=== PATIENT | female | born 1980 | race Caucasian/White ===

== ENCOUNTER 2016-11-13 10:29 | Emergency (ER) | payer BC ==
[2016-11-13 11:37] VITALS: BP 128/76
[2016-11-13 11:48] LABS: Hematocrit 41 % (35-47); Hemoglobin 13.5 g/dl (12.0-16.0); Mean Corpuscular HGB Conc 33 g/dl (31-36); Mean Corpuscular Hemoglobin 30 pg (27-31); Mean Corpuscular Volume 92 fL (80-97); Mean Platelet Volume 9 um3 (7.4-10.4); Red Blood Count 4.45 10^6/ul (4.0-5.4); Red Cell Distribution Width 13 % (10.5-15); White Blood Count 9.3 10^3/ul (3.5-10.8)
[2016-11-13 12:14] LABS: ALT 32 U/L (7-52); AST 23 U/L (13-39); Albumin 4.4 g/dL (3.2-5.2); Alkaline Phosphatase 65 U/L (34-104); Anion Gap 5 mmol/L (2-11); BUN/Creatinine Ratio 16.7 (8-20); Blood Urea Nitrogen 17 mg/dL (6-24); CO2 Carbon Dioxide 25 mmol/L (22-32); Calcium 9.7 mg/dL (8.6-10.3); Chloride 106 mmol/L (101-111); EGFR African American 78.9 (>60); EGFR Non-African American 61.3 (>60); Globulin 2.9 g/dL (2-4); Glucose 99 mg/dL (70-100); Potassium 4.5 mmol/L (3.5-5.0); Sodium 136 mmol/L (133-145); Total Protein 7.3 g/dL (6.4-8.9)
--- NOTE | 2016-11-13 12:22 | RAD ---
Indication: Abdominal pain, history of ectopic . Real-time sonography of the was performed. The uterus measures 7.4 x 3.8 x 4.4 cm. Endometrial echo measures 13 mm. Trace amount of free fluid in the cul-de-sac. The right ovary measures 3.5 x 2.0 x 3.1 cm. Left ovary measures 3.1 x 1.6 x 2.9 cm. No adnexal masses are noted. Doppler interrogation demonstrates flow in both ovaries. IMPRESSION: Trace amount of free fluid in the cul-de-sac with no definite adnexal masses.
[2016-11-13 13:19] LABS: Urine Bilirubin Negative (Negative); Urine Glucose Negative (Negative); Urine Nitrite Negative (Negative)
--- NOTE | 2016-11-13 19:10 | ED ---
Saige Nagy Seung-Jae, scribed for Sabino Tse MD on 11/13/16 at 1616 . GI/ HPI - HPI Summary HPI Summary: Pt is a 36 y/o F presenting to the ED with c/o discomfort in the suprapubic area. She describes tenderness in the suprapubic area. Associated Sx included vomiting and abd tenderness. She wants to r/o ectopic due to the inaccuracy of urine pregancy tests for this pt. PMhx surgery in left fallopian tube and the right tube is intact. - History of Current Complaint Chief Complaint: EDAbdPain Time Seen by Provider: 11/13/16 12:05 Stated Complaint: POSS TUBAL PREG Hx Obtained From: Patient Onset/Duration: Started Hours Ago Timing: Constant Pain Intensity: 0 Location of Pain: Suprapubic Pain Characteristics: Other: - tenderness Associated Signs and Symptoms: Positive: Nausea, Vomiting, Abdominal Pain - Additional Pertinent History Primary Care Physician: GIANNI - Allergy/Home Medications Allergies/Adverse Reactions: Allergies Allergy/AdvReac Type Severity Reaction Status Date / Time No Known Allergies Allergy Verified 06/15/13 19:19 PMH/Surg Hx/FS Hx/Imm Hx Endocrine/Hematology History: Denies: Hx Diabetes, Hx Thyroid Disease Cardiovascular History: Denies: Hx Hypertension Respiratory History: Denies: Hx Asthma, Hx Chronic Obstructive Pulmonary Disease (COPD) GI History: Denies: Hx Ulcer History: Reports: Hx Kidney Stones Denies: Hx Dialysis, Hx Renal Disease Psychiatric History: Reports: Hx Anxiety, Other Psychiatric Issues/Disorders - Claustrophobia - Surgical History Surgery Procedure, Year, and Place: stents for kidney stones Infectious Disease History: No Infectious Disease History: Denies: Hx Hepatitis, Hx Human Immunodeficiency Virus (HIV), Traveled Outside the [place] in Last 30 Days - Family History Known Family History: Positive: Hypertension Negative: Other - negative for ectopic - Social History Alcohol Use: None Substance Use Type: Reports: None Smoking Status (MU): Never Smoked Tobacco Review of Systems Positive: Abdominal Pain, Vomiting, Nausea Positive: other - suprapubic tenderness All Other Systems Reviewed And Are Negative: Yes Physical Exam - Summary Physical Exam Summary: The patient is well-nourished in no acute distress and in no acute pain. The skin is warm and dry and skin color reflects adequate perfusion. HEENT: The head is normocephalic and atraumatic. The pupils are equal and reactive. The conjunctivae are clear and without drainage. Nares are patent and without drainage. Mouth reveals moist mucous membranes and the throat is without erythema and exudate. The external ears are intact. The ear canals are patent and without drainage. The tympanic membranes are intact. Neck is supple with full range of motion and non-tender. There are no carotid bruits. There is no neck vein distension. Respiratory: Chest is non-tender. Lungs are clear to auscultation and breath sounds are symmetrical and equal. Cardiovascular: Hear is regular rate and rhythm. There is no murmur or rub auscultated. There is no peripheral edema and pulses are symmetrical and equal. Abdomen: There are normal bowel sounds heard in all four quadrants and there is no organomegaly palpated. suprapubic area tenderness. Musculoskeletal: There is no back pain noted. Extremities are non-tender with full range of motion. There is good capillary refill. There is no peripheral edema or calf tenderness elicited. Neurological: Patient is alert and oriented to person, place and time. The patient has symmetrical motor strength in all four extremities. Cranial nerves are grossly intact. Deep tendon reflexes are symmetrical and equal in all four extremities. Psychiatric: The patient has an appropriate affect and does not exhibit any anxiety or depression. Triage Information Reviewed: Yes Vital Signs On Initial Exam: Initial Vitals Temp Pulse Resp BP Pulse Ox 98.6 F 61 16 136/78 100 11/13/16 10:58 11/13/16 10:58 11/13/16 10:58 11/13/16 10:58 11/13/16 10:58 Vital Signs Reviewed: Yes - [place] Sta Coma Scale Coma Scale Total: 15 Diagnostics - Vital Signs Vital Signs Temp Pulse Resp BP Pulse Ox 11/13/16 11:32 74 128/76 98 11/13/16 11:30 68 99 11/13/16 11:13 61 99 11/13/16 11:10 122/77 11/13/16 11:09 97.6 F 76 18 122/77 98 11/13/16 10:58 98.6 F 61 16 136/78 100 - Laboratory Lab Results: Lab Results 11/13/16 11/13/16 11/13/16 Range/Units 11:33 11:33 11:33 WBC 9.3 (3.5-10.8) 10^3/ul RBC 4.45 (4.0-5.4) 10^6/ul Hgb 13.5 (12.0-16.0) g/dl Hct 41 (35-47) % MCV 92 (80-97) fL MCH 30 (27-31) pg MCHC 33 (31-36) g/dl RDW 13 (10.5-15) % Plt Count 244 (150-450) 10^3/ul MPV 9 (7.4-10.4) um3 Neut % (Auto) 66.8 (38-83) % Lymph % (Auto) 23.5 L (25-47) % [place] % (Auto) 8.2 (1-9) % Eos % (Auto) 0.9 (0-6) % Baso % (Auto) 0.6 (0-2) % Absolute Neuts (auto) 6.2 (1.5-7.7) 10^3/ul Absolute Lymphs (auto) 2.2 (1.0-4.8) 10^3/ul Absolute Monos (auto) 0.8 (0-0.8) 10^3/ul Absolute Eos (auto) 0.1 (0-0.6) 10^3/ul Absolute Basos (auto) 0.1 (0-0.2) 10^3/ul Absolute Nucleated RBC 0 10^3/ul Nucleated RBC % 0 Sodium 136 (133-145) mmol/L Potassium 4.5 (3.5-5.0) mmol/L Chloride 106 (101-111) mmol/L Carbon Dioxide 25 (22-32) mmol/L Anion Gap 5 (2-11) mmol/L BUN 17 (6-24) mg/dL Creatinine 1.02 H (0.51-0.95) mg/dL Est GFR ( Amer) 78.9 (>60) Est GFR (Non-Af Amer) 61.3 (>60) BUN/Creatinine Ratio 16.7 (8-20) Glucose 99 (70-100) mg/dL Calcium 9.7 (8.6-10.3) mg/dL Total Bilirubin 0.50 (0.2-1.0) mg/dL AST 23 (13-39) U/L ALT 32 (7-52) U/L Alkaline Phosphatase 65 (34-104) U/L Total Protein 7.3 (6.4-8.9) g/dL Albumin 4.4 (3.2-5.2) g/dL Globulin 2.9 (2-4) g/dL Albumin/Globulin Ratio 1.5 (1-3) Blood Type B Positive Antibody Screen Pending Result Diagrams: 11/13/16 11:33 11/13/16 11:33 Lab Statement: Any lab studies that have been ordered have been reviewed, and results considered in the medical decision making process. - Additional Comments Diagnostic Additional Comments: Transvaginal US Impression: Trace amount of free fluid in the cul de sac with no definite adnexal masses. GIGU Course/Dx - Course Assessment/Plan: Pt is a 36 y/o F presenting to the ED with c/o discomfort in the suprapubic area. She describes tenderness in the suprapubic area. Associated Sx included vomiting and abd tenderness. She wants to r/o ectopic due to the inaccuracy of urine pregancy tests for this pt. PMhx surgery in left fallopian tube and the right tube is intact. Through transvaginal US trace amounts of free fluid was found in the cul de sac with no definite adnexal masses. Pt was D/C with a f/u with Dr. Alvarado. - Diagnoses Differential Diagnoses - Female: GI Foreign Body, Urinary Tract Infection, Other - , ectopic preganancy, abdominal pain Provider Diagnoses: Abdominal pain, Nausea, Negative test Discharge - Discharge Plan Condition: Stable Disposition: HOME Patient Education Materials: Abdominal Pain (ED), Acute Nausea and Vomiting (ED ) Referrals: Maria Esther Fowler MD [Primary Care Provider] - 2 Days The documentation as recorded by the Saige rodriguez Seung-Jae accurately reflects the service I personally performed and the decisions made by , Sabino Tse MD.
== END 2016-11-13 14:02 | disposition home or self-care (01) ==
LOC: ED 10:29
DX: R10.9 Unspecified abdominal pain (principal); R11.2 Nausea with vomiting, unspecified
CPT/HCPCS: 36415; 76817; 80053; 81003; 84702; 85025; 86850; 86870; 86880; 86900; 86901; 99282

== ENCOUNTER → 2017-06-11 07:41 | Emergency (ER) | payer BC ==
[~2017-06-11 07:41] MED LIST: Iohexol 300* (CONTRAST) 10 ML SDV IV ONE; Ketorolac INJ* 30 MG/ML 1 ML VIAL ONE; Morphine INJ* 4 MG/ML 1 ML CARPUJECT IV ONE; NS 0.9% 1000 ML* 1,000 ML IV ONE; Ondansetron INJ* 2 MG/ML VIAL IV ONE
[2017-06-11 08:08] LABS: ABS Basophils 0.1 10^3/ul (0-0.2); ABS Eosinophils 0.1 10^3/ul (0-0.6); ABS Lymphocytes 1.6 10^3/ul (1.0-4.8); ABS Monocytes 0.5 10^3/ul (0-0.8); ABS Neutrophils 7.2 10^3/ul (1.5-7.7); ABS Nucleated RBC 0 10^3/ul; Eosinophil % 0.6 % (0-6); Hematocrit 40 % (35-47); Hemoglobin 13.8 g/dl (12.0-16.0); Lymphocyte % 16.9 % (25-47); Mean Corpuscular HGB Conc 35 g/dl (31-36); Mean Corpuscular Hemoglobin 31 pg (27-31); Mean Corpuscular Volume 89 fL (80-97); Mean Platelet Volume 9 um3 (7.4-10.4); Nucleated Red Blood Cells % 0; Platelet Count 248 10^3/ul (150-450); Red Blood Count 4.48 10^6/ul (4.0-5.4); Red Cell Distribution Width 13 % (10.5-15); White Blood Count 9.5 10^3/ul (3.5-10.8)
[2017-06-11 08:32] LABS: EGFR Non-African American 76.7 (>60)
--- NOTE | 2017-06-11 11:03 | RAD ---
Indication: Abdominal pain. Contrast: Administered 116.3 ml of OMNIPAQUE 300 mg/ml CT of the abdomen and pelvis was performed after oral and IV contrast administration. Coronal and sagittal reconstructed images were obtained. Comparison is made with previous exam dated March 31, 2016. The lung bases demonstrate no pleural fluid, nodules or masses. Heart is of normal size without evidence of pericardial effusion. Liver is normal in size. No focal lesions or intrahepatic ductal dilatation is noted. The gallbladder demonstrates no calcified gallstones. No pericholecystic fluid or wall thickening is identified. The pancreas demonstrates no mass effect or ductal dilatation. The spleen is normal in size. No adrenal lesions are noted. The kidneys demonstrates no hydronephrosis. Calculi are noted in both renal collecting system without definite evidence of obstruction. No retroperitoneal adenopathy is noted. No dilated loops of bowel are noted. The colon is filled with stool. No dilated loops of bowel are noted. The bladder is otherwise unremarkable Urinary bladder is unremarkable. Uterus and ovaries are clear The appendix appears to be unremarkable. IMPRESSION: No abnormal masses or fluid collections are noted. Bilateral renal calculi without definite evidence of obstruction. No abnormal masses or fluid collections are noted.
[2017-06-11 11:23] LABS: Urine Appearance Cloudy; Urine Blood 3+ (Negative); Urine Color Yellow; Urine Ketones Negative (Negative); Urine Protein Negative (Negative); Urine Specific Gravity 1.011 (1.010-1.030); Urine Urobilinogen Negative (Negative)
--- NOTE | 2017-06-11 12:45 | RAD ---
HISTORY: Right pelvic pain COMPARISONS: CT dated June 11, 2014 TECHNIQUE: Multiple transverse and longitudinal ultrasound images were obtained of the pelvis using grayscale, color Doppler, and spectral Doppler imaging using the endovaginal transducer. FINDINGS: UTERUS: The uterus measures 3.9 x 3.7 x 4.1 cm. The uterus is normal in shape, size, contour, and echotexture. ENDOMETRIUM: The endometrial stripe is smooth. The endometrium measures 1.3 cm in thickness. There is small amount of free fluid within the endocervical canal. CUL-DE-SAC: There is small amount of free fluid along the left adnexa. RIGHT OVARY: The right ovary measures 3.5 x 1.8 x 1.6 cm. Normal arterial and venous waveforms are identifiable within the ovary on spectral Doppler imaging. LEFT OVARY: The left ovary measures 2.4 x 1.1 x 2 cm. The spectral tracings are technically limited, but venous waveforms can be identified within the left ovary. BLADDER: The bladder is not well visualized. OTHER: None IMPRESSION: 1. THE ENDOMETRIUM MEASURES 1.3 CM. 2. THERE IS A SMALL AMOUNT OF FLUID WITHIN THE ENDOCERVICAL CANAL. 3. NO SONOGRAPHIC FEATURES OF TORSION. PLEASE NOTE THAT PARTIAL OR INTERMITTENT TORSION MAY BE SONOGRAPHICALLY NORMAL.
[2017-06-11 13:11] VITALS: BP 120/74
--- NOTE | 2017-06-11 18:55 | ED ---
Andrea Nagy Angela, scribed for Emanuel Mullins MD on 06/11/17 at 0755 . Abdominal Pain/Female - HPI Summary HPI Summary: This pt is a 36 y/o female presenting to [facility] c/o right sided abdominal pain radiating to her back x2 days. Pt reports her pain was intense last night and had difficulty sleeping secondary to pain. She describes her pain as throbbing. Pt notes her pain began in her back first. She rates her pain 7 out of 10 in severity. She states this pain "sort of" feels like her past kidney stones. PMHx: kidney stones, ectopic (s/p removal of left fallopian tube). LMP: 1.5 weeks ago. She denies chance of . - History of Current Complaint Chief Complaint: EDAbdPain Stated Complaint: RIGHT SIDE ABD PAIN Hx Obtained From: Patient Hx Last Menstrual Period: 1.5 weeks ago Onset/Duration: Lasting Days, Still Present Timing: Days Severity Currently: Severe Pain Intensity: 7 Pain Scale Used: 0-10 Numeric Location: Discrete At: RLQ Radiates: Yes Radiates to: Back Character: Other: - throbbing Aggravating Factor(s): Nothing Alleviating Factor(s): Nothing Associated Signs and Symptoms: Positive: Nausea, Vomiting, Diarrhea. Negative: Fever Allergies/Adverse Reactions: Allergies Allergy/AdvReac Type Severity Reaction Status Date / Time No Known Allergies Allergy Verified 06/11/17 08:22 PMH/Surg Hx/FS Hx/Imm Hx Endocrine/Hematology History: Denies: Hx Diabetes, Hx Thyroid Disease Cardiovascular History: Denies: Hx Hypertension Respiratory History: Denies: Hx Asthma, Hx Chronic Obstructive Pulmonary Disease (COPD) GI History: Denies: Hx Ulcer History: Reports: Hx Kidney Stones Denies: Hx Dialysis, Hx Renal Disease Psychiatric History: Reports: Hx Anxiety, Other Psychiatric Issues/Disorders - Claustrophobia - Surgical History Surgery Procedure, Year, and Place: stents for kidney stones. Left fallopian tube removed Infectious Disease History: No Infectious Disease History: Denies: Hx Hepatitis, Hx Human Immunodeficiency Virus (HIV), Traveled Outside the [place] in Last 30 Days - Family History Known Family History: Positive: Hypertension, Diabetes Negative: Other - negative for ectopic Family History: high cholesterol - Social History Alcohol Use: None Substance Use Type: Reports: None Smoking Status (MU): Never Smoked Tobacco Review of Systems Negative: Fever, Chills Eyes: Negative ENT: Negative Cardiovascular: Negative Positive: Abdominal Pain, Vomiting, Diarrhea, Nausea All Other Systems Reviewed And Are Negative: Yes Physical Exam - Summary Physical Exam Summary: VITAL SIGNS: Reviewed. GENERAL: Patient is a well-developed and nourished female who is lying comfortable in the stretcher. Patient is not in any acute respiratory distress. HEAD AND FACE: Normocephalic and atraumatic. EYES: PERRLA, EOMI x 2, No injected conjunctiva. EARS: Hearing grossly intact. Ear canals and tympanic membranes are WNL. MOUTH: Oropharynx within normal limits. NECK: Supple, trachea is midline, no adenopathy, no JVD. CHEST: Symmetric, no tenderness at palpation LUNGS: Clear to auscultation bilaterally. No wheezing or crackles. CVS: RRR, S1 and S2 present, no murmurs or gallops appreciated. ABDOMEN: Soft. Right lower quadrant abdominal tenderness. No signs of distention. Positive bowel sounds. No rebound no guarding, and no masses palpated. No abdominal bruit or pulsations. Right costovertebral tenderness. EXTREMITIES: FROM in all major joints, no edema, no cyanosis or clubbing. NEURO: Alert and oriented x 3. No acute neurological deficits. Speech is normal. SKIN: Dry and warm Triage Information Reviewed: Yes Vital Signs On Initial Exam: Initial Vitals Temp Pulse Resp BP Pulse Ox 98.2 F 85 16 131/88 95 06/11/17 07:42 06/11/17 07:42 06/11/17 07:42 06/11/17 07:42 06/11/17 07:42 Vital Signs Reviewed: Yes Diagnostics - Vital Signs Vital Signs Temp Pulse Resp BP Pulse Ox 06/11/17 07:42 98.2 F 85 16 131/88 95 - Laboratory Lab Results: Lab Results 06/11/17 06/11/17 06/11/17 Range/Units 07:55 07:55 10:00 WBC 9.5 (3.5-10.8) 10^3/ul RBC 4.48 (4.0-5.4) 10^6/ul Hgb 13.8 (12.0-16.0) g/dl Hct 40 (35-47) % MCV 89 (80-97) fL MCH 31 (27-31) pg MCHC 35 (31-36) g/dl RDW 13 (10.5-15) % Plt Count 248 (150-450) 10^3/ul MPV 9 (7.4-10.4) um3 Neut % (Auto) 76.1 (38-83) % Lymph % (Auto) 16.9 L (25-47) % [place] % (Auto) 5.6 (1-9) % Eos % (Auto) 0.6 (0-6) % Baso % (Auto) 0.8 (0-2) % Absolute Neuts (auto) 7.2 (1.5-7.7) 10^3/ul Absolute Lymphs (auto) 1.6 (1.0-4.8) 10^3/ul Absolute Monos (auto) 0.5 (0-0.8) 10^3/ul Absolute Eos (auto) 0.1 (0-0.6) 10^3/ul Absolute Basos (auto) 0.1 (0-0.2) 10^3/ul Absolute Nucleated RBC 0 10^3/ul Nucleated RBC % 0 Sodium 136 (133-145) mmol/L Potassium 3.9 (3.5-5.0) mmol/L Chloride 103 (101-111) mmol/L Carbon Dioxide 27 (22-32) mmol/L Anion Gap 6 (2-11) mmol/L BUN 18 (6-24) mg/dL Creatinine 0.84 (0.51-0.95) mg/dL Est GFR ( Amer) 98.7 (>60) Est GFR (Non-Af Amer) 76.7 (>60) BUN/Creatinine Ratio 21.4 H (8-20) Glucose 129 H (70-100) mg/dL Calcium 9.6 (8.6-10.3) mg/dL Total Bilirubin 0.60 (0.2-1.0) mg/dL AST 17 (13-39) U/L ALT 22 (7-52) U/L Alkaline Phosphatase 66 (34-104) U/L C-Reactive Protein 3.66 (< 5.00) mg/L Total Protein 7.1 (6.4-8.9) g/dL Albumin 4.4 (3.2-5.2) g/dL Globulin 2.7 (2-4) g/dL Albumin/Globulin Ratio 1.6 (1-3) Lipase 18 (11.0-82.0) U/L Urine Color Yellow Urine Appearance Cloudy Urine pH 7.0 (5-9) Ur Specific [place] 1.011 (1.010-1.030) Urine Protein Negative (Negative) Urine Ketones Negative (Negative) Urine Blood 3+ H (Negative) Urine Nitrate Negative (Negative) Urine Bilirubin Negative (Negative) Urine Urobilinogen Negative (Negative) Ur Leukocyte Esterase Negative (Negative) Urine WBC (Auto) Trace(0-5/hpf) (Absent) Urine RBC (Auto) 3+(>10/hpf) H (Absent) Ur Squamous Epith Cells Present H (Absent) Urine Bacteria 1+ H (Absent) Urine Glucose Negative (Negative) Result Diagrams: 06/11/17 07:55 06/11/17 07:55 Lab Statement: Any lab studies that have been ordered have been reviewed, and results considered in the medical decision making process. - CT Abdomen/Pelvis CT CT Interpretation: Positive (See Comments) - IMPRESSION: No abnormal masses or fluid collections are noted. Bilateral renal calculi without definite evidence of obstruction. No abnormal masses or fluid collections are noted. Dr. Mullins has reviewed this radiology report. CT Interpretation Completed By: Radiologist - Ultrasound No standard instances Ultrasound Interpretation: Positive (See Comments) - Transvaginal US IMPRESSION : 1. The endometrium measures 1.3 CM. 2. There is a small amount of fluid within the endocervical canal. 3. No sonographic features of torsion. Please note that partial or intermittent torsion may be sonographically normal. Dr. Mullins has reviewed this radiology report. Ultrasound Interpretation Completed By: Radiologist Re-Evaluation - Re-Evaluation First Eval Re-Evaluation Time: 12:53 Comment: I reviewed the US results with the pt. Abdominal Pain Fem Course/Dx - Course Course Of Treatment: This pt is a 36 y/o female presenting to [facility] c/o right sided abdominal pain radiating to her back x2 days. Pt reports her pain was intense last night and had difficulty sleeping secondary to pain. She describes her pain as throbbing. Pt notes her pain began in her back first. She rates her pain 7 out of 10 in severity. She states this pain "sort of" feels like her past kidney stones. PMHx: kidney stones, ectopic (s/p removal of left fallopian tube). LMP: 1.5 weeks ago. She denies chance of . Test results without any significant abnormalities. Urinalysis is contaminated; therefore we will send urine culture. Abdomen/Pelvis CT: No abnormal masses or fluid collections are noted. Bilateral renal calculi without definite evidence of obstruction. No abnormal masses or fluid collections are noted. Since the pt continues to have slight pain in the right pelvic area, I decided to do a transvaginal pelvic ultrasound. She was given fluids, Zofran, and morphine for the pain. Transvaginal US: 1. The endometrium measures 1.3 CM. 2. There is a small amount of fluid within the endocervical canal. 3. No sonographic features of torsion. Please note that partial or intermittent torsion may be sonographically normal. Since there was no significant abnormality, I discussed the test results with the pt and the need to follow up with her PCP. Pt understands and agrees. Pt will follow up with her PCP. Pt is hemodynamically stable, alert and oriented x3. - Diagnoses Differential Diagnosis: Positive: Appendicitis, Bowel Obstruction, Constipation , Diverticulitis, Ectopic , Ovarian Cyst, Urinary Tract Infection Provider Diagnoses: Abdominal pain Discharge - Discharge Plan Condition: Stable Disposition: HOME Prescriptions: HYDROcodone/ACETAMIN 5-325 MG* [[place] 5-325 TAB*] 1 tab PO Q6H PRN #12 tab MDD 4 PRN Reason: Pain Patient Education Materials: Abdominal Pain (ED) Referrals: No Primary Care Phys,NOPCP [Primary Care Provider] - [facility] [Outside] - 3 Days Additional Instructions: Please follow up with your primary care provider. RETURN TO THE ED FOR ANY WORSENING SYMPTOMS. The documentation as recorded by the Andrea rodriguez Angela accurately reflects the service I personally performed and the decisions made by me, Emanuel Mullins MD.
== END | disposition home or self-care (01) ==
LOC: ED 07:41
DX: R10.9 Unspecified abdominal pain (principal); Z87.442 Personal history of urinary calculi
CPT/HCPCS: 36415; 74177; 76830; 80053; 81003; 81015; 83690; 85025; 86140; 87086; 96360; 96374; 96375; 99283; J1885; Q9967

== ENCOUNTER 2017-07-23 07:38 | Day surgery (SDC) | payer BC ==
--- NOTE | 2017-07-12 08:04 | HP ---
HISTORY AND PHYSICAL: DATE OF ADMISSION: 07/23/17 ADMITTING DIAGNOSIS: Calculus, right proximal ureter. PLANNED PROCEDURE: 1. Right ureteral stent insertion. 2. Shockwave lithotripsy calculus right ureter. SURGEON: Mario Alvarado MD ADMITTING HISTORY AND PHYSICAL: Meli Roblero is a 36-year-old lady with a history of recurrent renal calculi. She had been evaluated initially in the emergency room and subsequently in my office. She was noted to have a 7 mm calculus in the proximal right ureter without any hydronephrosis. She continues to have episodic pain and is going to be brought in for right stent insertion and shockwave lithotripsy. Since the scheduling is about 2 weeks from the time of her last visit, I have explained to her that if in case she has recurrent episodes of pain, she may require to come in for an urgent right stent insertion to be then followed by the shockwave lithotripsy on 07/23/17 as scheduled. PAST MEDICAL HISTORY: Significant for renal calculi. PAST SURGICAL HISTORY: Significant for right ureteroscopy and stent in 2005 and surgery for an ectopic . MEDICATIONS ON ADMISSION: None. ALLERGIES: No known drug allergies. SOCIAL HISTORY: Smoking history: She is a nonsmoker. REVIEW OF SYSTEMS: She denies any chest pain or shortness of breath. There is no history of diabetes mellitus or any other major systemic illness. PHYSICAL EXAMINATION GENERAL: Reveals a pleasant healthy appearing young lady. VITAL SIGNS: Blood pressure is 142/90, pulse 98 per minute, temperature 97.2, oxygen saturation 97% on room air. LUNGS: Clear bilaterally. CARDIOVASCULAR: Regular rate and rhythm. S1, S2. ABDOMEN: Soft with mild right flank tenderness. IMPRESSION: A 36-year-old lady with calculus in the right proximal ureter. PLAN/RECOMMENDATIONS: Planned procedure is right stent insertion and shockwave lithotripsy of calculus, right ureter. [id number]/[facility] #: [id number] [facility]
[~2017-07-23 07:38] MED LIST changes: +Buffered Lidocaine 0.9% SYRIN* 5 ML/SYR SYRINGE INTRADERM ONE; +Dexamethasone IV* 4 MG/ML 1 ML (4 MG) IV SLOW PU ONE; +Famotidine IV* 10 MG/ML 2 ML (20 mg) IV ONE; -Iohexol 300* (CONTRAST) 10 ML SDV IV ONE; -Ketorolac INJ* 30 MG/ML 1 ML VIAL ONE; -Morphine INJ* 4 MG/ML 1 ML CARPUJECT IV ONE; -NS 0.9% 1000 ML* 1,000 ML IV ONE; -Ondansetron INJ* 2 MG/ML VIAL IV ONE
[2017-07-23] MEDS ORDERED: Famotidine IV* 10 MG/ML 2 ML (20 mg) ONE (07:56)
[2017-07-23] MEDS ORDERED: Buffered Lidocaine 0.9% SYRIN* 5 ML/SYR SYRINGE ONE (07:56)
[2017-07-23] MEDS ORDERED: Dexamethasone IV* 4 MG/ML 1 ML (4 MG) ONE (07:57)
[2017-07-23] MEDS ORDERED: cefTRIAXone(*) 2 GM ADDV.VIAL IVPB ONE (07:57)
[2017-07-23] MEDS ORDERED: fentaNYL* 50 MCG/ML 2 ML VIAL (100 MCG VIAL) ONE ×2 (07:59→11:21)
[2017-07-23] MEDS ORDERED: Midazolam* 1 MG/ML 2 ML VIAL (2 MG) ONE (07:59)
--- NOTE | 2017-07-23 08:35 | RAD ---
HISTORY: Right ureteral calculus COMPARISONS: July 09, 2017 VIEWS: Frontal views of the abdomen. FINDINGS: BOWEL: There is a nonspecific bowel gas pattern, with nondilated small bowel gas noted. CALCULI: Again noted are bilateral ureteral calculi measuring up to 0.6 cm. These are stable from the previous examination. BONES AND SOFT TISSUES: There are no osseous abnormalities. OTHER FINDINGS: The lung bases are clear. There is no subphrenic gas. IMPRESSION: STABLE BILATERAL NEPHROLITHIASIS.
[2017-07-23] MEDS ORDERED: Iohexol 180 (CONTRAST) 10 ML SDV IV ONE (08:37)
[2017-07-23] MEDS ORDERED: Ondansetron INJ* 2 MG/ML VIAL ONE (08:52)
[2017-07-23] MEDS ORDERED: Propofol* 10 MG/ML 20 ML BTL IV PUSH ONE (08:52)
[2017-07-23] MEDS ORDERED: Furosemide IV* 10 MG/ML 2 ML VIAL (20 MG) ONE (09:20)
[2017-07-23] MEDS ORDERED: Gentamicin ADULT (*) 40 MG/ML VIAL ONE (09:35)
[2017-07-23] MEDS ORDERED: EPHEDrine (Pressors)* 50 MG/ML VIAL ONE (09:42)
[2017-07-23] MEDS ORDERED: fentaNYL* 50 MCG/ML 2 ML VIAL (100 MCG VIAL) IV PRN (09:57)
[2017-07-23] MEDS ORDERED: Scopolamine 1.5 mg* PATCH TRANSDERM PRN (09:57)
[2017-07-23] MEDS ORDERED: DiMENhydriNATE IV* 50 MG/ML VIAL IV PUSH PRN (09:57)
[2017-07-23] MEDS ORDERED: Naloxone* 0.4 MG/ML 1 ML VIAL IV PRN (09:57)
[2017-07-23] MEDS ORDERED: DiMENhydriNATE IV* 50 MG/ML VIAL ONE (11:17)
[2017-07-23] MEDS ORDERED: Scopolamine 1.5 mg* PATCH ONE (11:21)
[2017-07-23 12:35] VITALS: BP 121/71
--- NOTE | 2017-07-23 13:36 | RAD ---
INDICATION: Patient is status post right-sided ureteral stent placement COMPARISON: Preprocedural KUB dated July 23, 2017 acquired at 0803 hours TECHNIQUE: A single view of the abdomen was obtained at 1322 hours FINDINGS: There is been interval placement of an anatomically aligned right ureteral stent. There is an amorphous focus of calcium at the L2/L3 level adjacent to the stent that corresponds to the more focal area of calcium seen on the preprocedural radiograph. There are 2 additional punctate calcifications overlying the expected location of the right renal collecting system. At the expected location of the lower pole left renal lodging system is a 6 mm focus of calcium similar in appearance to the previous KUB. IMPRESSION: INTERVAL PLACEMENT OF AN ANATOMICALLY ALIGNED RIGHT URETERAL STENT DESCRIBED ABOVE.
--- NOTE | 2017-07-23 14:00 | OP ---
CC: Dr. Trever Sears * DATE OF OPERATION: 07/23/17 - [facility] DATE OF : 80 SURGEON: Mario Alvarado MD ANESTHESIOLOGIST: Dr. Watters. ANESTHESIA: General. PRE-OP DIAGNOSIS: Calculus right proximal ureter. POST-OP DIAGNOSIS: Calculus right proximal ureter. OPERATIVE PROCEDURE: 1. Shockwave lithotripsy, calculus, right ureter. 2. Cystoscopy. 3. Right retrograde pyelogram. 4. Right ureteral stent insertion. COMPLICATIONS: None. STENT USED: A 6-Lithuanian stent right ureter. POSTOPERATIVE CONDITION: Stable. INDICATIONS: Meli Berry is a 36-year-old lady who had been evaluated for a 7 mm calculus in the right proximal ureter. This has been persistent on several imaging studies, and she is now being brought in for shockwave lithotripsy and right stent insertion. DESCRIPTION OF PROCEDURE: After induction of general anesthesia, the patient was placed on the lithotripsy table in the supine position. The calculus and the proximal right ureter was localized using fluoroscopy. Shockwave lithotripsy was commenced at a rate of 60 shocks per minute and periodic imaging revealed adequate localization. 2400 shocks were administered. The stone appeared to fragment, although it is hard to access the degree of fragmentation in the ureter. Next, the patient was placed in dorsal lithotomy position. Cystoscopy was performed. The bladder appeared normal. A guidewire was introduced into the right ureter and retrograde pyelogram performed. There was very mild fullness of the right collecting system. A 6-Lithuanian stent was introduced and positioned under fluoroscopy with good proximal and distal positioning obtained. The bladder was emptied. The patient tolerated the procedure satisfactorily and was transferred back to the recovery area in stable condition. The plan is to obtain a followup x-ray to assess the degree of fragmentation prior to considering stent removal. [id number]/[facility] #: [id number] MTDD
== END 2017-07-23 13:13 | disposition home or self-care (01) ==
LOC: OR 07:38
PROVIDERS: ATTEND Urology
DX: N20.1 Calculus of ureter (principal); Z68.31 Body mass index [BMI] 31.0-31.9, adult
CPT/HCPCS: 74018; 81025; A9270-GY; C1876; J0696; J1100; J1240; J1580; J1940; J2250; J2405; J2704; J3010

== ENCOUNTER 2018-04-16 23:54 | Observation (INO) | payer BC ==
[2018-04-17] MEDS ORDERED: NS 0.9% 1000 ML* 1,000 ML IV ONE ×2 (00:10→03:51)
[2018-04-17] MEDS ORDERED: Ondansetron INJ* 2 MG/ML VIAL IV ONE (00:11)
[2018-04-17] MEDS ORDERED: Ketorolac INJ* 30 MG/ML 1 ML VIAL IV PUSH ONE (00:11)
[2018-04-17 00:32] LABS: ABS Basophils 0.1 10^3/ul (0-0.2); ABS Eosinophils 0.1 10^3/ul (0-0.6); ABS Lymphocytes 3.5 10^3/ul (1.0-4.8); ABS Monocytes 0.9 10^3/ul (0-0.8); ABS Neutrophils 8.7 10^3/ul (1.5-7.7); ABS Nucleated RBC 0 10^3/ul; Eosinophil % 0.9 %; Hematocrit 39 % (35-47); Hemoglobin 13.7 g/dl (12.0-16.0); Lymphocyte % 26.5 %; Mean Corpuscular HGB Conc 35 g/dl (31-36); Mean Corpuscular Hemoglobin 31 pg (27-31); Mean Corpuscular Volume 89 fL (80-97); Mean Platelet Volume 8.3 fL (7.4-10.4); Nucleated Red Blood Cells % 0; Platelet Count 281 10^3/ul (150-450); Red Blood Count 4.42 10^6/ul (4.00-5.40); Red Cell Distribution Width 13 % (10.5-15); White Blood Count 13.4 10^3/ul (3.5-10.8)
--- NOTE | 2018-04-17 00:32 | ED ---
Abdominal Pain/Female - HPI Summary HPI Summary: This patient is a 37 year old MF presenting to [facility] with a chief complaint of left sided flank pain radiating to her anterior since 1 hour ago. She sees Mario Alvarado MD, urologist, and she has a known kidney stone that was diagnosed last summer. The patient rates the pain 9/10 in severity. Patient reports vomiting, subjective fever, and chills. Patient denies diarrhea. Patient denies any other health issues and denies taking any other medications. Patient is expecting a menstrual period in the new few days. She denies any chance of because you need to have sex to get . She has a PMHx of kidney stones. Patient denies drinking or smoking. - History of Current Complaint Chief Complaint: EDFlankPain Stated Complaint: LT FLANK PAIN Time Seen by Provider: 04/17/18 00:11 Hx Obtained From: Patient Hx Last Menstrual Period: 1.5 weeks ago ?: No - because you need to have sex to get Onset/Duration: Sudden Onset, Lasting Hours - 1 hour ago Severity Initially: Severe Severity Currently: Severe Pain Intensity: 9 Pain Scale Used: 0-10 Numeric Location: Flank - left Radiates: Yes Radiates to: Other - her anterior Alleviating Factor(s): Position - Standing Associated Signs and Symptoms: Positive: Fever - Subjective, Vomiting, Other: - Chills. Negative: Diarrhea Allergies/Adverse Reactions: Allergies Allergy/AdvReac Type Severity Reaction Status Date / Time latex Allergy Severe rash, Verified 07/23/17 07:55 yeast infection PMH/Surg Hx/FS Hx/Imm Hx Endocrine/Hematology History: Denies: Hx Diabetes, Hx Thyroid Disease Cardiovascular History: Denies: Hx Hypertension Respiratory History: Denies: Hx Asthma, Hx Chronic Obstructive Pulmonary Disease (COPD) GI History: Denies: Hx Ulcer History: Reports: Hx Kidney Stones Denies: Hx Dialysis, Hx Renal Disease Psychiatric History: Reports: Hx Anxiety, Other Psychiatric Issues/Disorders - Claustrophobia - Surgical History Surgery Procedure, Year, and Place: stents for kidney stones. Left fallopian tube removed Infectious Disease History: No Infectious Disease History: Denies: Hx Hepatitis, Hx Human Immunodeficiency Virus (HIV), Traveled Outside the [place] in Last 30 Days - Family History Known Family History: Positive: Hypertension, Diabetes Negative: Other - negative for ectopic Family History: high cholesterol - Social History Alcohol Use: None Substance Use Type: Reports: None Smoking Status (MU): Never Smoked Tobacco Review of Systems Positive: Fever - Subjective, Chills Positive: Vomiting. Negative: Diarrhea All Other Systems Reviewed And Are Negative: Yes Physical Exam - Summary Physical Exam Summary: Appearance: Well appearing, no pain distress Skin: warm, dry, reflects adequate perfusion Head/face: normal Eyes: EOMI, CHRISTIAN ENT: mucous membranes moist Neck: supple, non-tender Respiratory: CTA, breath sounds present Cardiovascular: RRR, pulses symmetrical Abdomen: non-tender, soft Bowel Sounds: present Musculoskeletal: Left CVA tenderness, strength/ROM intact Neuro: normal, sensory motor intact, A&Ox3 Triage Information Reviewed: Yes Vital Signs On Initial Exam: Initial Vitals Temp Pulse Resp BP Pulse Ox 97 F 85 20 134/82 100 04/16/18 23:56 04/16/18 23:56 04/16/18 23:56 04/16/18 23:56 04/16/18 23:56 Vital Signs Reviewed: Yes Diagnostics - Vital Signs Vital Signs Temp Pulse Resp BP Pulse Ox 04/16/18 23:56 97 F 85 20 134/82 100 - Laboratory Result Diagrams: 04/17/18 00:23 04/17/18 00:23 Lab Statement: Any lab studies that have been ordered have been reviewed, and results considered in the medical decision making process. - CT Abdomen/Pelvis CT CT Interpretation Completed By: Radiologist Summary of CT Findings: 02:45. Moderate left hydronephrosis. Obstructing stone (6 x 4 mm size) at the left UV junction. 1 or 2 faint, punctate non- obstructing stones in the left kidney. ED Physician has reviewed this imaging report. Abdominal Pain Fem Course/Dx - Course Course Of Treatment: Nurse's note reviewed. Urine pending. Patient with significant discomfort from proximal ureteral stone. Large stone likely requiring surgical intervention. Discussed the case with her urologist who agrees and will come and take the patient to the OR. IV Rocephin given here, gentamicin buddhist monk to the OR. Admit for further. - Diagnoses Differential Diagnosis: Positive: Ovarian Cyst, Pancreatitis, Renal Colic, Urinary Tract Infection Provider Diagnoses: Renal colic, Renal lithiasis - Provider Notifications Discussed Care Of Patient With: Mario Alvarado - will take to the OR, admit hospitalist Dr. Sutherland Instructed by Provider To: Other - D/W Dr Sutherland who accepts Discharge - Sign-Out/Discharge Documenting (check all that apply): Patient Departure - Admit - Discharge Plan Condition: Fair Disposition: ADMITTED TO [facility] Referrals: Trever Sears MD [Primary Care Provider] - - Billing Disposition and Condition Condition: FAIR Disposition: Admitted to [facility] - Attestation Statements Document Initiated by Scribe: Yes Documenting Scribe: Ole Gan Provider For Whom Scribe is Documenting (Include Credential): Thom Costa MD Scribe Attestation: IOle, scribed for Thom Costa MD on 04/17/18 at 0341. Scribe Documentation Reviewed: Yes Provider Attestation: The documentation as recorded by the Ole rodriguez accurately reflects the service I personally performed and the decisions made by me, Thom Costa MD Status of Scribe Document: Viewed
[2018-04-17 00:48] LABS: ALT 19 U/L (7-52); AST 15 U/L (13-39); Albumin 4.2 g/dL (3.2-5.2); Albumin/Globulin Ratio 1.7 (1-3); Alkaline Phosphatase 76 U/L (34-104); Anion Gap 9 mmol/L (2-11); BUN/Creatinine Ratio 18.5 (8-20); Blood Urea Nitrogen 20 mg/dL (6-24); C Reactive Protein 3.35 mg/L (<8.01); CO2 Carbon Dioxide 26 mmol/L (22-32); Calcium 9.6 mg/dL (8.6-10.3); Chloride 104 mmol/L (101-111); EGFR Non-African American 57.1 (>60); Globulin 2.5 g/dL (2-4); Glucose 165 mg/dL (70-100); Potassium 3.6 mmol/L (3.5-5.0); Sodium 139 mmol/L (135-145); Total Protein 6.7 g/dL (6.4-8.9)
[2018-04-17 00:54] LABS: HCG Pregnancy < 0.60 mIU/mL
[2018-04-17] MEDS ORDERED: Morphine VIAL* 4 MG/ML VIAL (1 ml vial) IV ONE (03:00)
[2018-04-17] MEDS ORDERED: cefTRIAXone(*) 2 GM in NS 0.9% 100 ML* 100 ML IVPB ONE (03:33)
[2018-04-17] MEDS ORDERED: Ondansetron INJ* 2 MG/ML VIAL IV PRN (03:51)
[2018-04-17] MEDS ORDERED: Al Hydrox/Mg Hydrox/Simet LIQ* 30 ML UDC PO PRN (03:51)
[2018-04-17] MEDS ORDERED: Morphine VIAL* 4 MG/ML VIAL (1 ml vial) IV PRN (03:51)
[2018-04-17] MEDS ORDERED: Senna TAB PO PRN (03:51)
[2018-04-17] MEDS ORDERED: Docusate CAP* 100 MG PO PRN (03:51)
[2018-04-17] MEDS ORDERED: Acetaminophen TAB* 325 MG PO PRN ×2 (03:51→06:34)
[2018-04-17] MEDS ORDERED: NS 0.9% 1000 ML* 1,000 ML IV SCH (04:00)
[2018-04-17 04:02] LABS: Urine Appearance Clear; Urine Bacteria Absent (Absent); Urine Bilirubin Negative (Negative); Urine Blood 3+ (Negative); Urine Color Yellow; Urine Glucose Negative (Negative); Urine Ketones Negative (Negative); Urine Nitrite Negative (Negative); Urine Protein 1+(30 mg/dL) (Negative); Urine Red Blood Cell 3+(>10/hpf) (Absent); Urine Specific Gravity 1.025 (1.010-1.030); Urine Urobilinogen Negative (Negative); Urine White Blood Cell Absent (Absent)
[2018-04-17] MEDS ORDERED: Buffered Lidocaine 0.9% SYRIN* 5 ML/SYR SYRINGE INTRADERM ONE (05:29)
[2018-04-17] MEDS ORDERED: Iohexol 180 (CONTRAST) 10 ML SDV IV ONE (05:32)
[2018-04-17] MEDS ORDERED: Lidocaine 2% PF * 5 ML VIAL ONE (05:44)
[2018-04-17] MEDS ORDERED: Propofol* 10 MG/ML 20 ML BTL ONE (05:44)
[2018-04-17] MEDS ORDERED: fentaNYL* 50 MCG/ML 2 ML VIAL (100 MCG VIAL) ONE (05:44)
[2018-04-17] MEDS ORDERED: Succinylcholine* 20 MG/ML 10 ML VIAL ONE (05:45)
[2018-04-17] MEDS ORDERED: Lactated Ringers 1000 ML Bag* 1,000 ML IV SCH (06:00)
[2018-04-17] MEDS ORDERED: EPHEDrine (Pressors)* 50 MG/ML VIAL ONE (06:20)
[2018-04-17] MEDS ORDERED: Ondansetron INJ* 2 MG/ML VIAL ONE (06:22)
[2018-04-17] MEDS ORDERED: Metoclopramide IV* 5 MG/ML 2 ML VIAL ONE (06:22)
[2018-04-17] MEDS ORDERED: Dexamethasone IV* 4 MG/ML 1 ML (4 MG) ONE (06:22)
[2018-04-17] MEDS ORDERED: Naloxone* 0.4 MG/ML 1 ML VIAL IV PRN (06:34)
[2018-04-17] MEDS ORDERED: DiMENhydriNATE IV* 50 MG/ML VIAL IV PUSH PRN (06:34)
[2018-04-17] MEDS ORDERED: fentaNYL* 50 MCG/ML 2 ML VIAL (100 MCG VIAL) IV PRN (06:34)
[2018-04-17] MEDS ORDERED: oxyCODONE TAB* 5 MG TAB PO PRN (06:34)
--- NOTE | 2018-04-17 08:12 | HP ---
CC: Dr. Sears * HISTORY AND PHYSICAL: DATE OF ADMISSION: 04/17/18. TIME OF EVALUATION: 0400 PRIMARY CARE PHYSICIAN: Dr. Sears. CHIEF COMPLAINT: Left flank pain, nausea, vomiting. HISTORY OF PRESENT ILLNESS: This is a 37-year-old female with a past medical history of renal calculi requiring intervention who presented to the emergency room with acute onset of left flank pain, nausea, vomiting. She states she woke up with acute onset of left flank pain and started to vomit due to the pain. She states she was having fevers and chills at home. This is familiar to her presentation of having a kidney stone in the past. In the emergency room , the patient had labs, imaging. She was found to have hydro with an obstructing renal stone. Dr. Alvarado was called. He recommended hospitalist admission to keep the patient n.p.o. with antibiotics and IV fluids. The patient denies any dysuria. She thinks she may be having urinary frequency. No shortness of breath, no chest pain. Some abdominal discomfort on the left side. No diarrhea or constipation. Otherwise, review of systems negative in the emergency room. Admission labs and imaging as mentioned above. She was given Zofran 4 mg, a liter of fluid, Marcaine 4 mg, Toradol 30 mg, and ceftriaxone and gentamicin have been ordered. PAST MEDICAL HISTORY: History of a right proximal calculi requiring stent and lithotripsy in June 2017, history of a right ureteroscopy and stent in 2005, history of an ectopic . MEDICATIONS: None. ALLERGIES: No known drug allergies. FAMILY HISTORY: Her mother is alive and healthy. Her father is alive and has a history of kidney stones. SOCIAL HISTORY: The patient lives at home with her . She works as a turner and a wahl. No history of smoking or alcohol use. No illicit drug use. Code status is full code. REVIEW OF SYSTEMS: A 14-point review of systems mentioned in HPI, otherwise negative. PHYSICAL EXAMINATION GENERAL: Some discomfort, in no acute distress. VITAL SIGNS: Temp T-max 99.6, pulse rate 75, respiratory rate 16, oxygen saturation 99% on room air, blood pressure 133/87. HEENT: Head normocephalic. Pupils are equal and reactive, sclerae anicteric. Oropharynx: Mucous membranes are moist. NECK: Supple. No lymphadenopathy. HEART: Regular rate and rhythm. Soft systolic murmur heard throughout. RESPIRATORY: Clear to auscultation. No wheezes, rhonchi, or rales. ABDOMEN: Positive bowel sounds, soft, nondistended, some tenderness on the left side and left flank pain. EXTREMITIES: No clubbing, cyanosis, or edema. +2 DPs. NEUROLOGIC: Alert and oriented x3. No gross focal neurologic deficits. LABORATORY DATA: White count 13.4, hemoglobin 13.7, hematocrit 39, platelets 281,000. Sodium 139, potassium 3.6, chloride 104, bicarb 26, BUN 20, creatinine 1.08, glucose 165. Lactic acid 2.1. HCG less than 0.6. RADIOGRAPHIC DATA: Abdomen and pelvis CT: Moderate left hydronephrosis. Obstructing stone 6 x 4 mm size at the left UV junction, one or two faint punctate nonobstructing stones in the left kidney. ASSESSMENT/PLAN: This is a 37-year-old female with past medical history of kidney stones, presented to the emergency room with acute onset of left flank pain, found to have an obstructing left renal calculi. 1. Obstructing left renal calculi. Assessment: Dr. Alvarado has been contacted. He had plans to take her to the OR this morning. Gentamicin and ceftriaxone have been ordered. We will continue on IV fluids, morphine as needed for pain. We will hold off on further Toradol with a mild bump in her creatinine and continue on ceftriaxone for now. Follow up with any further urology recommendations. 2. FEN. As mentioned n.p.o., IV fluids. 3. DVT prophylaxis. The patient score is a low risk of 1. Place her on SCDs. 4. Code status full code. TIME SPENT: Greater than 35 minutes were spent doing the history and physical, more than half the time spent in direct patient contact. [id number]/[facility] #: [id number] [place]
[2018-04-17] MEDS: Lactated Ringers 1000 ML Bag* 1,000 ML IV SCH ×2 (08:38→13:09)
[2018-04-17] MEDS: Gentamicin ADULT (*) 160 MG in NS 0.9% 100 ML* 100 ML IVPB ONE ×2 (09:17→09:58)
--- NOTE | 2018-04-17 09:51 | CONS ---
CC: Dr. Sears; Mario Avlarado * UROLOGY CONSULTATION NOTE: DATE OF CONSULT: 04/17/18. REQUESTING PHYSICIAN: Dr. Costa in the emergency department. DIAGNOSES: 1. Left flank pain. 2. Left hydronephrosis. 3. Obstructing calculus, left proximal ureter. HISTORY OF PRESENT ILLNESS: Meli Berry is a 37-year-old lady with a history of recurrent renal calculi. She presented to the emergency room with complaint of left flank pain, nausea and vomiting, and fever and chills. Evaluation in the emergency room including a CT scan revealed a fairly large ( to my visualization at least 7 to 8 mm) calculus in the proximal left ureter at/ or below the level of the left ureteropelvic junction with left hydronephrosis. She continues to be in fairly severe pain and is now being brought in for urgent left stent insertion to be followed in the near future by lithotripsy. PAST MEDICAL HISTORY: Significant for renal calculi. ALLERGIES: LATEX. REVIEW OF SYSTEMS: She is otherwise in excellent health. There is no history of diabetes mellitus or any other major systemic illness. PHYSICAL EXAM: Reveals a pleasant uncomfortable appearing young lady. Blood pressure is 134/82, pulse 85 per minute and regular, respirations 20 per minute , temperature 97, oxygen saturation 100% on room air. Cardiovascular: Regular rate and rhythm. S1 and S2. Lungs are clear bilaterally. Abdomen is soft with left flank tenderness. DIAGNOSTIC STUDIES/LAB DATA: Review of labs reveals an elevated white count at 13.4, hemoglobin and hematocrit are normal at 13.7 and 39. Creatinine is 1.08. Urinalysis shows a pH of 6.0, 3+ RBC's and absent WBC's and bacteria. ASSESSMENT AND PLAN: I had a detailed discussion with Meli regarding the obstructing calculus and given the severity of her pain, the plan is for urgent left stent insertion to be followed at some point in the near future by shockwave lithotripsy of the calculus. [id number]/[facility] #: [id number] [facility]ITALLeslie
--- NOTE | 2018-04-17 12:02 | OP ---
CC: Dr. Trever Sears * DATE OF OPERATION: 04/17/18 - ROOM #331 DATE OF : 80 SURGEON: Mario Alvarado MD. ANESTHESIOLOGIST: Dr. Flaherty. ANESTHESIA: General. PRE-OP DIAGNOSES: 1. Left hydronephrosis. 2. Obstructing calculus, left proximal ureter. POST-OP DIAGNOSES: 1. Left hydronephrosis. 2. Obstructing calculus, left proximal ureter. OPERATIVE PROCEDURE: 1. Cystoscopy. 2. Left retrograde pyelogram. 3. Left ureteral calculus manipulation and left stent insertion. COMPLICATIONS: None. STENT USED: A 6-Cameroonian stent, left ureter. POSTOPERATIVE CONDITION: Stable. INDICATIONS: Meli Berry is a 37-year-old lady with a history of recurrent renal calculi. She was evaluated in the emergency room because of severe left flank pain, nausea, and vomiting secondary to an obstructing calculus in the left proximal ureter. She is being brought in for urgent left stent insertion to be followed sometime in the near future by lithotripsy. DESCRIPTION OF PROCEDURE: After induction of general anesthesia, the patient was placed in dorsal lithotripsy position. Sequential compression devices were in place and functioning. Initial evaluation revealed a normal-appearing bladder, clear efflux was noted from the right orifice. There was no efflux noted from the left orifice suggesting a complete obstruction. Left retrograde pyelogram revealed fullness of the left collecting system. The calculus could be visualized at or just below the level of the left ureteropelvic junction and was carefully manipulated proximally. Once this was done, there was a significant hydronephrotic drip from the left kidney. A 6-Cameroonian stent was introduced and positioned under fluoroscopy with good proximal and distal positioning obtained. The bladder was emptied. Patient tolerated the procedure satisfactorily and was transferred back to the recovery area in stable condition. [id number]/[facility] #: [id number] [facility]ATRIC CENTERLeslie
--- NOTE | 2018-04-17 14:16 | PN ---
Subjective Date of Service: 04/17/18 Interval History: I saw and examined Meli this morning postoperatively. She was resting in bed but feeling quite ill. She denied pain and her vitals were stable but she had no appetite and felt lethargic and generally unwell. Will continue to monitor through the day. Objective Active Medications: Acetaminophen (Tylenol Tab*) 650 mg PO Q4H PRN PRN Reason: FEVER/PAIN Al Hydrox/Mg Hydrox/Simethicone (Maalox Plus*) 30 ml PO Q6H PRN PRN Reason: INDIGESTION Docusate Sodium (Colace Cap*) 100 mg PO BID PRN PRN Reason: CONSTIPATION Lactated Ringer's (Lactated Ringers 1000 Ml Bag*) 1,000 mls @ 250 mls/hr IV .PER RATE YAKOV Last Admin: 04/17/18 13:09 Dose: 250 mls/hr Morphine Sulfate (Morphine Vial*) 4 mg IV Q4H PRN PRN Reason: PAIN - MILD Ondansetron HCl (Zofran Inj*) 4 mg IV Q4H PRN PRN Reason: NAUSEA/VOMITING Senna (Senokot Tab*) 1 tab PO BID PRN PRN Reason: CONSTIPATION Vital Signs - 8 hr 04/17/18 04/17/18 04/17/18 06:58 07:10 07:11 Temperature 97.3 F Pulse Rate 123 112 107 Respiratory 18 18 16 Rate Blood Pressure 127/69 120/69 (mmHg) O2 Sat by Pulse 100 97 97 Oximetry 04/17/18 04/17/18 04/17/18 07:15 07:30 07:45 Temperature Pulse Rate 106 91 85 Respiratory 18 18 16 Rate Blood Pressure 115/67 126/67 118/70 (mmHg) O2 Sat by Pulse 98 99 99 Oximetry 04/17/18 04/17/18 04/17/18 08:13 08:41 09:19 Temperature 97.4 F 97.4 F Pulse Rate 97 97 Respiratory 20 18 18 Rate Blood Pressure 134/74 134/74 (mmHg) O2 Sat by Pulse 97 97 Oximetry 04/17/18 04/17/18 04/17/18 09:22 09:45 11:13 Temperature 98.4 F 98.3 F Pulse Rate 88 92 Respiratory 18 18 20 Rate Blood Pressure 135/73 127/69 (mmHg) O2 Sat by Pulse 95 97 97 Oximetry 04/17/18 13:13 Temperature 98.3 F Pulse Rate 94 Respiratory 18 Rate Blood Pressure 126/67 (mmHg) O2 Sat by Pulse 95 Oximetry Oxygen Devices in Use Now: None Result Diagrams: 04/17/18 00:23 04/17/18 00:23 Assess/Plan/Problems-Billing Assessment:
[2018-04-18] MEDS ORDERED: cefTRIAXone(*) 1 GM in NS 0.9% 50 ML* 50 ML IVPB SCH (03:00)
[2018-04-18 05:02] LABS: ABS Basophils 0 10^3/ul (0-0.2); ABS Eosinophils 0 10^3/ul (0-0.6); ABS Lymphocytes 2.1 10^3/ul (1.0-4.8); ABS Monocytes 0.8 10^3/ul (0-0.8); ABS Neutrophils 8.7 10^3/ul (1.5-7.7); ABS Nucleated RBC 0 10^3/ul; Eosinophil % 0.1 %; Hematocrit 36 % (35-47); Hemoglobin 12.1 g/dl (12.0-16.0); Lymphocyte % 18.3 %; Mean Corpuscular HGB Conc 34 g/dl (31-36); Mean Corpuscular Hemoglobin 31 pg (27-31); Mean Corpuscular Volume 91 fL (80-97); Mean Platelet Volume 8.5 fL (7.4-10.4); Nucleated Red Blood Cells % 0; Platelet Count 230 10^3/ul (150-450); Red Blood Count 3.96 10^6/ul (4.00-5.40); Red Cell Distribution Width 13 % (10.5-15); White Blood Count 11.7 10^3/ul (3.5-10.8)
[2018-04-18 05:25] LABS: Calcium 8.9 mg/dL (8.6-10.3); EGFR Non-African American 78.4 (>60); Potassium 4.6 mmol/L (3.5-5.0)
--- NOTE | 2018-04-18 11:31 | DS ---
CC: Dr. Sears; Dr. Alvarado DISCHARGE SUMMARY: DATE OF ADMISSION: 04/17/18. DATE OF DISCHARGE: 04/18/18. PRINCIPAL DISCHARGE DIAGNOSIS: Obstructing left renal calculus. DISCHARGE MEDICATIONS: None. PHYSICAL EXAM AT DISCHARGE: Vital Signs: Temperature 98.4, heart rate 75, respiratory rate 16, puls e ox 99% on room air, blood pressure 113/66. General: Alert, well-appearing female, in no distress. She is nontoxic appearing. Her oral mucosa is moist. Her neck has no adenopathy or JVP. Chest: S he is in a regular rate and rhythm with no murmurs. Her abdomen is soft, nontender, nondistended. Sh e has no suprapubic tenderness and no CVA tenderness. Extremities: No rashes, edema or ulcers. HOSPITAL COURSE BY PROBLEM: Obstructing left renal calculus. Ms. Dorene Berry presented to the ED wi th flank pain and a CT of abdomen and pelvis showed moderate left hydronephrosis and an obstructing 6 x 4 mm stone at the site of the left UV junction. She went to the OR with Dr. Alvarado on the morning of 04/17/18 and performed a cystoscopy, left retrograde pyelogram, and left ureteral calculus manipul ation, and left stent insertion. She tolerated the procedure well and was transferred to short stay. Her urinalysis was negative for infection. She remained afebrile throughout her course and on the morning of discharge, is ambulating independently and tolerating a full diet with no pain. She is be ing discharged and will follow up with Dr. Alvarado in the office and had been instructed to call to make an appointment and to follow up with her primary care physician within the next week. TIME SPENT: Twenty five minutes were spent on this discharge. [id number]/[facility] #: [id number]
[2018-04-18 11:40] VITALS: BP 116/64
== END 2018-04-18 12:10 | disposition home or self-care (01) ==
LOC: ED 23:54 → OR 04-17 04:39 → SSU 04-17 08:10
PROVIDERS: ADMIT Urology; ATTEND Internal Medicine
DX: N13.2 Hydronephrosis with renal and ureteral calculous obstruction (principal)
CPT/HCPCS: 36415; 74018; 74176; 74420; 80048; 80053; 81003; 81015; 83605; 83690; 84702; 85025; 86140; 99284; C1876; J0330; J0696; J1100; J1580; J1885; J2270; J2405; J2704; J2765; J3010

== ENCOUNTER 2018-05-13 10:32 | Day surgery (SDC) | payer BC ==
[~2018-05-13 10:32] MED LIST changes: -Buffered Lidocaine 0.9% SYRIN* 5 ML/SYR SYRINGE INTRADERM ONE; +Buffered Lidocaine 1% SYRIN* 1 ML/SYRINGE INTRADERM ONE; +Lactated Ringers 1000 ML Bag* 1,000 ML IV SCH
[2018-05-13] MEDS ORDERED: Dexamethasone IV* 4 MG/ML 1 ML (4 MG) ONE (11:53)
[2018-05-13] MEDS ORDERED: Famotidine IV* 10 MG/ML 2 ML (20 mg) ONE (11:53)
[2018-05-13] MEDS ORDERED: cefTRIAXone(*) 2 GM ADDV.VIAL IVPB ONE (11:54)
[2018-05-13] MEDS ORDERED: fentaNYL* 50 MCG/ML 2 ML VIAL (100 MCG VIAL) ONE (12:14)
[2018-05-13] MEDS ORDERED: Midazolam* 1 MG/ML 2 ML VIAL (2 MG) ONE (12:15)
[2018-05-13] MEDS ORDERED: Propofol* 10 MG/ML 20 ML BTL ONE (12:29)
[2018-05-13] MEDS ORDERED: Ondansetron INJ* 2 MG/ML VIAL ONE (12:29)
[2018-05-13] MEDS ORDERED: DiMENhydriNATE IV* 50 MG/ML VIAL IV PUSH PRN (12:47)
[2018-05-13] MEDS ORDERED: Naloxone* 0.4 MG/ML 1 ML VIAL IV PRN (12:47)
[2018-05-13] MEDS ORDERED: fentaNYL* 50 MCG/ML 2 ML VIAL (100 MCG VIAL) IV PRN (12:47)
[2018-05-13] MEDS ORDERED: EPHEDrine (Pressors)* 50 MG/ML VIAL ONE (13:16)
[2018-05-13 15:26] VITALS: BP 132/75
--- NOTE | 2018-05-13 21:08 | OP ---
CC: Dr. Sears * DATE OF OPERATION: 05/13/18 - SDS DATE OF : 80 SURGEON: Dr. Alvarado. ANESTHESIOLOGIST: Dr. Watters. ANESTHESIA: General. PRE-OP DIAGNOSIS: Left renal calculus. POST-OP DIAGNOSES: Left renal calculus. OPERATIVE PROCEDURE: Shock wave lithotripsy, left renal calculus. INDICATIONS: Meli Berry is a 37-year-old lady who had undergone urgent left stent insertion for an obstructing calculus in the left proximal ureter. She is now being brought in for lithotripsy. COMPLICATIONS: None. POSTOPERATIVE CONDITION: Stable. DESCRIPTION OF PROCEDURE: After induction of general anesthesia, the patient was placed on the lithotripsy table in supine position. The calculus, which was in the area of the left ureteropelvic junction, was localized using fluoroscopy and shock wave lithotripsy was commenced at a rate of 90 shocks per minute. Periodic imaging revealed good localization and fragmentation and a total of 2000 shocks were administered. The patient tolerated the procedure satisfactorily and was transferred back to the recovery area in stable condition. [id number]/[facility] #: [id number] [facility]D
== END 2018-05-13 15:49 | disposition home or self-care (01) ==
LOC: OR 10:32
PROVIDERS: ATTEND Urology
DX: N20.0 Calculus of kidney (principal); Z68.31 Body mass index [BMI] 31.0-31.9, adult
CPT/HCPCS: 74018; 81025; J0696; J1100; J2250; J2405; J2704; J3010

== ENCOUNTER 2019-05-13 16:40 | Emergency (ER) | payer BC ==
[2019-05-13 18:35] LABS: ABS Eosinophils 0.1 10^3/ul (0-0.6); ABS Lymphocytes 2.7 10^3/ul (1.0-4.8); ABS Neutrophils 5.9 10^3/ul (1.5-7.7); Eosinophil % 0.7 %; Hematocrit 35 % (35-47); Hemoglobin 12.3 g/dL (12.0-16.0); Mean Corpuscular HGB Conc 35 g/dL (31-36); Mean Corpuscular Hemoglobin 31 pg (27-31); Mean Corpuscular Volume 88 fL (80-97); Mean Platelet Volume 8.7 fL (7.4-10.4); Nucleated Red Blood Cells % 0.1; Platelet Count 240 10^3/uL (150-450); Red Blood Count 3.96 10^6 /uL (3.70-4.87); Red Cell Distribution Width 13 % (10-15); White Blood Count 9.7 10^3/uL (3.5-10.8)
[2019-05-13 18:48] LABS: Albumin 3.8 g/dL (3.2-5.2); Albumin/Globulin Ratio 1.5 (1-3); BUN/Creatinine Ratio 21.2 (8-20); Calcium 8.9 mg/dL (8.6-10.3); EGFR African American 90.6 (>60); EGFR Non-African American 74.9 (>60); Globulin 2.5 g/dL (2-4); Potassium 3.4 mmol/L (3.5-5.0); Total Bilirubin 0.4 mg/dL (0.2-1.0); Total Protein 6.3 g/dL (6.4-8.9)
[2019-05-13 18:49] LABS: Troponin I 0.01 ng/mL (<0.03)
[2019-05-13] MEDS ORDERED: Albuterol 2.5 MG/3 ML NEB.SOL* (0.083%) INH ONE (22:00)
[2019-05-13] MEDS ORDERED: Iohexol 350* (CONTRAST) 500 ML MDV IV ONE (22:36)
--- NOTE | 2019-05-13 22:37 | ED ---
Respiratory - HPI Summary HPI Summary: 38 year old female presents with shortness of breath since surgery yesterday. States that when the placed the mask on her face she felt that she was having allergic reaction to the medication so they had to switch it out. She states that she woke up from anaesthesia with tightness in chest in the center. She states she's had a slight cough. No fevers. No chills. she was not intubated. Does have family history of blood clots. Is currently on amoxicillin and has taken 2 doses. She states that she is also been having dental pain. No sore throat. no swelling to neck. Doesn't have a history of asthma or COPD. - History of Current Complaint Chief Complaint: EDShortnessOfBreath Stated Complaint: TROUBLE BREATHING PER PT Time Seen by Provider: 05/13/19 21:47 Pain Intensity: 4 - Allergy/Home Medications Allergies/Adverse Reactions: Allergies Allergy/AdvReac Type Severity Reaction Status Date / Time latex Allergy Severe rash, Verified 05/13/18 12:01 yeast infection Home Medications: Home Medications Ketorolac TAB * [Toradol TAB *] 10 mg PO Q6HR PRN 05/13/19 [History Confirmed ] PMH/Surg Hx/FS Hx/Imm Hx Endocrine/Hematology History: Denies: Hx Anticoagulant Therapy, Hx Diabetes, Hx Thyroid Disease Cardiovascular History: Denies: Hx Hypertension Respiratory History: Denies: Hx Asthma, Hx Chronic Obstructive Pulmonary Disease (COPD) GI History: Denies: Hx Ulcer History: Reports: Hx Kidney Stones - CURRENTLY Denies: Hx Dialysis, Hx Renal Disease Musculoskeletal History: Reports: Hx Tendonitis - bilat arms Sensory History: Reports: Hx Contacts or Glasses - INSTRUCTS GIVEN Denies: Hx Hearing Aid Opthamlomology History: Reports: Hx Contacts or Glasses - INSTRUCTS GIVEN Psychiatric History: Reports: Hx Anxiety - SOME- NO MEDICATION FOR, Other Psychiatric Issues/Disorders - Claustrophobia - Cancer History Hx Chemotherapy: No - Surgical History Surgery Procedure, Year, and Place: stents for kidney stones. Left fallopian tube removed. LEFT STENT INSERTION FOR KIDNEY STONE Hx Anesthesia Reactions: No Infectious Disease History: No Infectious Disease History: Denies: Hx Hepatitis, Hx Human Immunodeficiency Virus (HIV), Traveled Outside the [place] in Last 30 Days - Family History Known Family History: Positive: Hypertension, Diabetes, Blood Disorder Negative: Other - negative for ectopic Family History: high cholesterol - Social History Alcohol Use: Occasionally Substance Use Type: Reports: None Smoking Status (MU): Never Smoked Tobacco Have You Smoked in the Last Year: No Review of Systems Negative: Fever Positive: Chest Pain Positive: Shortness Of Breath. Negative: Cough Negative: Abdominal Pain All Other Systems Reviewed And Are Negative: Yes Physical Exam Triage Information Reviewed: Yes Vital Signs On Initial Exam: Initial Vitals Temp Pulse Resp BP Pulse Ox 98.6 F 72 18 131/96 97 05/13/19 16:55 05/13/19 16:55 05/13/19 16:55 05/13/19 16:55 05/13/19 16:55 Vital Signs Reviewed: Yes Appearance: Positive: Well-Appearing Skin: Positive: Warm, Dry Head/Face: Positive: Normal Head/Face Inspection Eyes: Positive: Normal, Conjunctiva Clear ENT: Positive: Pharynx normal Respiratory/Lung Sounds: Positive: Clear to Auscultation, Breath Sounds Present , Other - reproducible chest pain Cardiovascular: Positive: Normal, RRR Abdomen Description: Positive: Nontender, Soft Bowel Sounds: Positive: Present Musculoskeletal: Positive: Normal Neurological: Positive: Normal Psychiatric: Positive: Normal Procedures - Sedation Patient Received Moderate/Deep Sedation with Procedure: No Diagnostics - Vital Signs Vital Signs Temp Pulse Resp BP Pulse Ox 05/13/19 21:56 98.3 F 05/13/19 20:12 98.3 F 65 16 132/92 98 05/13/19 17:57 99.8 F 78 18 127/81 98 05/13/19 16:55 98.6 F 72 18 131/96 97 - Laboratory Lab Results: Lab Results 05/13/19 05/13/19 05/13/19 Range/Units 18:05 18:05 18:06 WBC 9.7 (3.5-10.8) 10^3/uL RBC 3.96 (3.70-4.87) 10^6 /uL Hgb 12.3 (12.0-16.0) g/dL Hct 35 (35-47) % MCV 88 (80-97) fL MCH 31 (27-31) pg MCHC 35 (31-36) g/dL RDW 13 (10-15) % Plt Count 240 (150-450) 10^3/uL MPV 8.7 (7.4-10.4) fL Neut % (Auto) 60.9 % Lymph % (Auto) 28.0 % Freestone % (Auto) 10.0 % Eos % (Auto) 0.7 % Baso % (Auto) 0.4 % Absolute Neuts (auto) 5.9 (1.5-7.7) 10^3/ul Absolute Lymphs (auto) 2.7 (1.0-4.8) 10^3/ul Absolute Monos (auto) 1.0 H (0-0.8) 10^3/ul Absolute Eos (auto) 0.1 (0-0.6) 10^3/ul Absolute Basos (auto) 0.0 (0-0.2) 10^3/ul Absolute Nucleated RBC 0.0 10^3/ul Nucleated RBC % 0.1 D-Dimer, Quantitative 234 H (Less Than 230) ng/mL Sodium (135-145) mmol/L Potassium (3.5-5.0) mmol/L Chloride (101-111) mmol/L Carbon Dioxide (22-32) mmol/L Anion Gap (2-11) mmol/L BUN (6-24) mg/dL Creatinine (0.51-0.95) mg/dL Est GFR ( Amer) (>60) Est GFR (Non-Af Amer) (>60) BUN/Creatinine Ratio (8-20) Glucose (70-100) mg/dL Lactic Acid (0.5-2.0) mmol/L Calcium (8.6-10.3) mg/dL Total Bilirubin (0.2-1.0) mg/dL AST (13-39) U/L ALT (7-52) U/L Alkaline Phosphatase (34-104) U/L Troponin I (<0.03) ng/mL C-Reactive Protein 16.00 H (<8.01) mg/L Total Protein (6.4-8.9) g/dL Albumin (3.2-5.2) g/dL Globulin (2-4) g/dL Albumin/Globulin Ratio (1-3) 05/13/19 05/13/19 Range/Units 18:06 18:06 WBC (3.5-10.8) 10^3/uL RBC (3.70-4.87) 10^6 /uL Hgb (12.0-16.0) g/dL Hct (35-47) % MCV (80-97) fL MCH (27-31) pg MCHC (31-36) g/dL RDW (10-15) % Plt Count (150-450) 10^3/uL MPV (7.4-10.4) fL Neut % (Auto) % Lymph % (Auto) % Freestone % (Auto) % Eos % (Auto) % Baso % (Auto) % Absolute Neuts (auto) (1.5-7.7) 10^3/ul Absolute Lymphs (auto) (1.0-4.8) 10^3/ul Absolute Monos (auto) (0-0.8) 10^3/ul Absolute Eos (auto) (0-0.6) 10^3/ul Absolute Basos (auto) (0-0.2) 10^3/ul Absolute Nucleated RBC 10^3/ul Nucleated RBC % D-Dimer, Quantitative (Less Than 230) ng/mL Sodium 141 (135-145) mmol/L Potassium 3.4 L (3.5-5.0) mmol/L Chloride 103 (101-111) mmol/L Carbon Dioxide 30 (22-32) mmol/L Anion Gap 8 (2-11) mmol/L BUN 18 (6-24) mg/dL Creatinine 0.85 (0.51-0.95) mg/dL Est GFR ( Amer) 90.6 (>60) Est GFR (Non-Af Amer) 74.9 (>60) BUN/Creatinine Ratio 21.2 H (8-20) Glucose 94 (70-100) mg/dL Lactic Acid 0.7 (0.5-2.0) mmol/L Calcium 8.9 (8.6-10.3) mg/dL Total Bilirubin 0.40 (0.2-1.0) mg/dL AST 16 (13-39) U/L ALT 19 (7-52) U/L Alkaline Phosphatase 64 (34-104) U/L Troponin I 0.01 (<0.03) ng/mL C-Reactive Protein (<8.01) mg/L Total Protein 6.3 L (6.4-8.9) g/dL Albumin 3.8 (3.2-5.2) g/dL Globulin 2.5 (2-4) g/dL Albumin/Globulin Ratio 1.5 (1-3) Result Diagrams: 05/13/19 18:06 05/13/19 18:06 Lab Statement: Any lab studies that have been ordered have been reviewed, and results considered in the medical decision making process. - Radiology chest Radiology Interpretation Completed By: ED Physician Summary of Radiographic Findings: no active disease - CT cta CT Interpretation Completed By: Radiologist Summary of CT Findings: IMPRESSION: 1. There is significant bibasilar atelectatic change, however cannot exclude a component of pneumonitis at the lung bases. 2. No visible acute pulmonary embolism. - EKG No standard instances Cardiac Rate: NL EKG Rhythm: Sinus Rhythm Summary of EKG Findings: sinus rhythm Disposition - Course Course Of Treatment: 38 year old female presents with shortness of breath since surgery yesterday. States that when the placed the mask on her face she felt that she was having allergic reaction to the medication so they had to switch it out. She states that she woke up from anaesthesia with tightness in chest in the center. She states she's had a slight cough. No fevers. No chills. she was not intubated. Does have family history of blood clots. Is currently on amoxicillin and has taken 2 doses. She states that she is also been having dental pain. No sore throat. no swelling to neck. Doesn't have a history of asthma or COPD. On exam lungs clear to auscultation. Chest x-ray normal. Lab work: white blood count normal. Troponin 0. EKG shows sinus rhythm. d-dimer elevated. reproducible chest pain. CT shows potential pneumonitis. We will treat with steroid in case it is inflammatory and Augmentin for potential pneumonia. Told follow up primary. Patient understands agrees plan. - Differential Dx - Cardiopulmonary Differential Diagnoses - Cardiopulmonary: Bronchitis, Lower Resp Infection, Pulmonary Embolism - Diagnoses Provider Diagnoses: Pneumonia Discharge ED - Sign-Out/Discharge Documenting (check all that apply): Patient Departure - Discharge Plan Condition: Good Disposition: HOME Prescriptions: Amoxicillin/Clavulanate TAB* [Augmentin TAB 875*] 875 mg PO BID #20 tab predniSONE 50 mg TAB [Deltasone 50 mg TAB] 50 mg PO DAILY #4 tab Referrals: Trever Sears MD [Primary Care Provider] - Additional Instructions: stop amoxicillin take Augmentin twice a day for 7 days take steroid once a day for 5 days Follow up with primary within 5 days Return to ED if develop any new or worsening symptoms - Billing Disposition and Condition Condition: GOOD Disposition: Home
[2019-05-13] MEDS ORDERED: Iodixanol* (CONTRAST) 320 MG/ML 100 ML SDV IV ONE (23:11)
[2019-05-14] MEDS ORDERED: oxyCODONE/Acetamin 5/325 MG* TAB PO ONE (00:37)
[2019-05-14] MEDS ORDERED: Amoxicillin/Clavulanate TAB* 875 MG PO ONE (00:37)
[2019-05-14 00:53] VITALS: BP 121/82
== END 2019-05-14 00:52 | disposition home or self-care (01) ==
LOC: ED 16:40
DX: J18.9 Pneumonia, unspecified organism (principal); R06.02 Shortness of breath; R07.9 Chest pain, unspecified; Z87.442 Personal history of urinary calculi; F41.9 Anxiety disorder, unspecified
CPT/HCPCS: 36415; 71046; 71275; 80053; 83605; 83880; 84484; 85025; 85379; 86140; 93005; 99284; A9270-GY; J7512; Q9967

== ENCOUNTER 2019-06-10 15:22 | Emergency (ER) | payer BC ==
[2019-06-10 15:36] VITALS: BP 108/69
--- NOTE | 2019-06-10 16:13 | UC ---
[facility] Dental HPI - History of Current Complaint Chief Complaint: UCDentalProblem Stated Complaint: DENTAL PAIN Time Seen by Provider: 06/10/19 16:11 Hx Obtained From: Patient Hx Last Menstrual Period: 05/17/19 Pain Intensity: 5 - Allergies/Home Medications Allergies/Adverse Reactions: Allergies Allergy/AdvReac Type Severity Reaction Status Date / Time latex Allergy Severe rash, Verified 05/13/18 12:01 yeast infection scented oxygen Allergy Severe See Comment Uncoded 06/10/19 15:37 PMH/Surg Hx/FS Hx/Imm Hx Previously Healthy: Yes - Denies signigicant PMH Other History Of: Negative For: Anticoagulant Therapy - Surgical History Surgical History: Yes Surgery Procedure, Year, and Place: stents for kidney stones. Left fallopian tube removed. LEFT STENT INSERTION FOR KIDNEY STONE - Family History Known Family History: Positive: Hypertension, Diabetes, Blood Disorder Negative: Other - negative for ectopic Family History: high cholesterol - Social History Occupation: Unemployed Lives: With Family Alcohol Use: Occasionally Substance Use Type: None Smoking Status (MU): Never Smoked Tobacco Have You Smoked in the Last Year: No - Immunization History Most Recent Influenza Vaccination: never Most Recent Tetanus Shot: 2005 Most Recent Pneumonia Vaccination: never Review of Systems All Other Systems Reviewed And Are Negative: Yes Physical Exam - Summary Physical Exam Summary: GENERAL APPEARANCE: Well developed, well nourished, alert and cooperative, and appears to be in no acute distress. HEAD: Atraumatic. normocephalic. MOUTH/THROAT: Pharynx normal No tonsilar inflammation, swelling, exudate, or lesions. Uvula midline. Oral cavity normal. Teeth and gingiva in good general condition. NECK: Neck supple, non-tender without lymphadenopathy. CARDIAC: Normal S1 and S2. No S3, S4 or murmurs. Rhythm is regular. There is no peripheral edema, cyanosis or pallor. Extremities are warm and well perfused. Capillary refill is less than 2 seconds. Peripheral pulses intact. LUNGS: Clear to auscultation without rales, rhonchi, wheezing or diminished breath sounds. ABDOMEN: Positive bowel sounds. Soft, nondistended, nontender. No guarding or rebound. No masses or hepatosplenomegally. MUSKULOSKELETAL: ROM intact to all extremities. No joint erythema or tenderness. Normal muscular development. Normal gait. SKIN: Skin normal color, texture and turgor with no lesions or eruptions. Triage Information Reviewed: Yes Vital Signs: Initial Vital Signs Temp 98.5 F 06/10/19 15:30 Pulse 82 06/10/19 15:30 Resp 16 06/10/19 15:30 BP 108/69 06/10/19 15:30 Pulse Ox 98 06/10/19 15:30 Vital Signs Reviewed: Yes Dental Complaint Course/Dx - Differential Dx/Diagnosis Differential Diagnosis/Dx: Dental Abscess, Dental Caries, Fractured Tooth, Odontogenic Pain, Peridontic Disease Provider Diagnosis: TMJ arthralgia Discharge ED - Sign-Out/Discharge Documenting (check all that apply): Patient Departure All imaging exams completed and their final reports reviewed: No Studies - Discharge Plan Condition: Stable Disposition: HOME Prescriptions: Naproxen [Naproxen 500 mg tab] 500 mg PO Q12HR #30 tablet Patient Education Materials: Temporomandibular Disorder (ED) Referrals: Trever Sears MD [Primary Care Provider] - Additional Instructions: Take naproxen 500 mg 1 tablet every 12 hours with food for the next 3-5 days then you may take every 12 hours as needed for pain. Apply ice to the affected area for 15-20 minutes at least 4 times a day to help reduce any inflammation. Stick to a soft diet as long as you are having discomfort. Follow-up with your dentist or primary care provider in 3-5 days if symptoms are not improving. Seek immediate medical attention in the emergency room if you develop severe pain that is not managed with the pain medication, you are unable to open or close her mouth, have any difficulty breathing, you're unable to swallow, or have any worsening of symptoms. - Billing Disposition and Condition Condition: STABLE Disposition: Home
== END 2019-06-10 16:50 | disposition home or self-care (01) ==
LOC: UCEAST 15:22
DX: M26.629 Arthralgia of temporomandibular joint, unspecified side (principal); Z91.040 Latex allergy status; Z91.09 Other allergy status, other than to drugs and biological substances
CPT/HCPCS: 99212; G0463

== ENCOUNTER 2019-07-06 12:26 | Emergency (ER) | payer BC ==
[2019-07-06 13:54] VITALS: BP 132/72
--- NOTE | 2019-07-06 13:57 | UC ---
Skin Complaint HPI - HPI Summary HPI Summary: left anterior cervial firm swollen gland for about 3 weeks after a dental procedure--no other wallace ill no fever or weight loss, - History of Current Complaint Chief Complaint: UCSkin Time Seen by Provider: 07/06/19 13:48 Stated Complaint: SOFT TISSUE COMPLAINT Hx Obtained From: Patient Hx Last Menstrual Period: Jun 12 ?: No Onset/Duration: Gradual Onset, Lasting Weeks - 3, Still Present Onset Severity: Mild Current Severity: Mild Pain Intensity: 0 Pain Scale Used: 0-10 Numeric Location: Discrete Character: Swelling, Pain Aggravating Factor(s): Touch Alleviating Factor(s): Nothing - Allergy/Home Medications Allergies/Adverse Reactions: Allergies Allergy/AdvReac Type Severity Reaction Status Date / Time latex Allergy Severe rash, Verified 07/06/19 13:54 yeast infection scented oxygen Allergy Severe See Comment Uncoded 07/06/19 13:54 Home Medications: Home Medications Clindamycin Cap(NF) [Clindamycin Cap 300 mg Cap(NF)] 300 mg PO QID 10 Days #40 cap 07/06/19 [Rx] PMH/Surg Hx/FS Hx/Imm Hx Previously Healthy: Yes Other History Of: Negative For: Anticoagulant Therapy - Surgical History Surgical History: Yes Surgery Procedure, Year, and Place: stents for kidney stones. Left fallopian tube removed. LEFT STENT INSERTION FOR KIDNEY STONE - Family History Known Family History: Positive: Hypertension, Diabetes, Blood Disorder Negative: Other - negative for ectopic Family History: high cholesterol - Social History Occupation: Works From/At Home Lives: With Family Alcohol Use: Rare Substance Use Type: None Smoking Status (MU): Never Smoked Tobacco Have You Smoked in the Last Year: No - Immunization History Most Recent Influenza Vaccination: never Most Recent Tetanus Shot: 2005 Most Recent Pneumonia Vaccination: never Review of Systems All Other Systems Reviewed And Are Negative: Yes Constitutional: Positive: Negative Skin: Positive: Negative Eyes: Positive: Negative ENT: Positive: Other - left anterior cervical 1 firm tender swollen node Respiratory: Positive: Negative Cardiovascular: Positive: Negative Gastrointestinal: Positive: Negative Genitourinary: Positive: Negative Motor: Positive: Negative Neurovascular: Positive: Negative Musculoskeletal: Positive: Negative Neurological/Mental Status: Positive: Negative Psychological: Positive: Negative Is Patient Immunocompromised?: No Physical Exam Triage Information Reviewed: Yes Appearance: Well-Appearing, No Pain Distress, Well-Nourished Vital Signs: Initial Vital Signs Temp 97.8 F 07/06/19 13:50 Pulse 67 07/06/19 13:50 Resp 14 07/06/19 13:50 BP 132/72 07/06/19 13:50 Pulse Ox 98 07/06/19 13:50 Vital Signs Reviewed: Yes Eye Exam: Normal Eyes: Positive: Conjunctiva Clear ENT Exam: Normal ENT: Positive: Normal ENT inspection, Hearing grossly normal, Pharynx normal, TMs normal, Uvula midline. Negative: Nasal congestion, Tonsillar swelling, Tonsillar exudate, Trismus, Muffled voice, Hoarse voice, Dental tenderness, Sinus tenderness Dental Exam: Normal Dental: Positive: Cervical Lymphadenopathy - left anterior cervical Neck exam: Normal Neck: Positive: Supple, Nontender, Enlarged Nodes @ - left anterior cervical Respiratory Exam: Normal Respiratory: Positive: Chest non-tender, No respiratory distress, No accessory muscle use Cardiovascular Exam: Normal Cardiovascular: Positive: RRR, Pulses Normal, Brisk Capillary Refill Musculoskeletal Exam: Normal Musculoskeletal: Positive: Strength Intact, ROM Intact, No Edema Neurological Exam: Normal Neurological: Positive: Alert, Muscle Tone Normal Psychological Exam: Normal Psychological: Positive: Normal Response To Family, Age Appropriate Behavior Skin Exam: Normal Course/Dx - Course Course Of Treatment: clindamycin, probiotic, follow with [facility] in the next 7-10 days for possible ultrasound--and further workup - Diagnoses Provider Diagnosis: Lymphadenopathy, anterior cervical Discharge ED - Sign-Out/Discharge Documenting (check all that apply): Patient Departure All imaging exams completed and their final reports reviewed: No Studies - Discharge Plan Condition: Stable Disposition: HOME Prescriptions: Clindamycin Cap(NF) [Clindamycin Cap 300 mg Cap(NF)] 300 mg PO QID 10 Days #40 cap Patient Education Materials: Lymphadenopathy (ED) Referrals: Trever Sears MD [Primary Care Provider] - 7 Days - Billing Disposition and Condition Condition: STABLE Disposition: Home - Attestation Statements Provider Attestation: I was available for consult. This patient was seen by the [facility]. The patient was not presented to , seen by or examined by la -Jude Salmon MD
== END 2019-07-06 14:24 | disposition home or self-care (01) ==
LOC: UCEAST 12:26
DX: R59.0 Localized enlarged lymph nodes (principal); Z91.040 Latex allergy status; Z91.09 Other allergy status, other than to drugs and biological substances
CPT/HCPCS: 99212; G0463